=== PATIENT | male | born 1980 | race Caucasian/White ===

== ENCOUNTER 2019-07-25 19:34 | Observation (INO) ==
--- NOTE | 2019-07-25 19:50 | DR.N/VMALE ---
HPI - Time Seen Time seen: 19:46 - HPI Comment HPI Comment: pATIENT COMPLAINT OF ABDOMINAL PAIN, VOMITING ONSET TODAY AROUND 0500. PATIENT DENIES ANY BAD OR SPOILED FOOD. HE DOES NOT KNOW OF ANY EXPOSURE TO SOMEONE ILL WITH VOMITING. HE STATES HE HAS HAD THIS OFF AND ON THE PAST YE AR? - COVID-19 Coronavirus risk:travel/contact w/high risk person: No Has patient experienced Coronavirus symptoms: No - Source History Provided: Patient, EMS - Mode of Arrival Mode of Arrival: EMS - Context Onset: Spontaneous History of: None - Quality Quality: Bilious - Associated Signs and Symptoms Abdominal Pain Quality: Aching Abdominal Pain Location: Epigastric Symptoms: Abdominal Pain PMH - PMH Past Surgical History: No - Social History Alcohol Use: Occasionally - Travel Risk Coronavirus risk:travel/contact w/high risk person: No Has patient experienced Coronavirus symptoms: No - infectious screening In the last 2 months have you had wt loss of >10#?: NO Have you had fever, night sweats or hemotysis?: No Have you traveled outside the country in the last 6 months?: No ROS - Review of Systems Constitutional: No Symptoms Reported Eyes: No Symptoms Reported ENTM: No Symptoms Reported Respiratoy: No Symptoms Reported Cardiovascular: No Symptoms Reported Gastrointestinal/Abdominal: Abdominal Pain, Nausea, Vomiting Genitourinary: No Symptoms Reported Neurological: No Symptoms Reported Musculoskeletal: No Symptoms Reported Integumentary: No Symptoms Reported Hematologic/Lymphatic: No Symptoms Reported Endocrine: No Symptoms Reported Psychiatric: No Symptoms Reported All Other Systems: Reviewed and Negative PE - Vital Signs Vitals: Temperature 98.4 F Pulse Rate 59 Respiratory Rate 19 Blood Pressure 126/71 O2 Sat by Pulse Oximetry 99 Course - Consultation Called: 23:59 Call Returned: 23:59 Consultation Comments: CASE DISCUSSED WITH brii Penny, OBSERVATION, ivf AND ZOFRAN ROR - Labs Reviewed Result Diagrams: 07/25/19 20:11 07/25/19 20:11 - XRAY XRAY Interpreted by: Radiologist - Labs Reviewed Laboratory: WBC 18.3 X10^3/uL (3.6-10.0) H 07/25/19 20:11 RBC 5.60 X10^6/uL (4.7-6.0) 07/25/19 20:11 Hgb 16.9 g/dL (13.5-18.0) 07/25/19 20:11 Hct 49.5 % (42.0-54.0) 07/25/19 20:11 MCV 88.4 fL (80.0-100.0) 07/25/19 20:11 MCH 30.3 pg (27.0-34.0) 07/25/19 20:11 MCHC 34.2 g/dL (33.0-35.0) 07/25/19 20:11 RDW 14.6 % (11.6-16.5) 07/25/19 20:11 Plt Count 329 X10^3/uL (150.0-450.0) 07/25/19 20:11 MPV 6.8 fL (7.4-11.0) L 07/25/19 20:11 Neut % (Auto) 87.9 % (42.0-75.0) H 07/25/19 20:11 Lymph % (Auto) 8.2 % (21.0-51.0) L 07/25/19 20:11 [place] % (Auto) 3.6 % (0.0-13.0) 07/25/19 20:11 Eos % (Auto) 0.1 % (0.9-2.9) L 07/25/19 20:11 Baso % (Auto) 0.2 % (0.2-1.0) 07/25/19 20:11 Neut # (Auto) 16.1 x10^3/uL (2.2-4.8) H 07/25/19 20:11 Lymph # (Auto) 1.5 X10^3/uL (1.3-2.9) 07/25/19 20:11 [place] # (Auto) 0.7 x10^3/uL (0.3-0.8) 07/25/19 20:11 Eos # (Auto) 0.0 x10^3/uL (0.0-0.2) 07/25/19 20:11 Baso # (Auto) 0.0 X10^3/uL (0.0-0.1) 07/25/19 20:11 Absolute Nucleated RBC 0.0 /100WBC 07/25/19 20:11 Sodium 144 mmol/L (136-145) 07/25/19 20:11 Corrected Sodium 145 mmol/L (136-145) 07/25/19 20:11 Potassium 3.7 mmol/L (3.5-5.1) 07/25/19 20:11 Chloride 104 mmol/L (98-107) 07/25/19 20:11 Carbon Dioxide 30.3 mmol/L (21-32) 07/25/19 20:11 BUN 10 mg/dL (7-18) 07/25/19 20:11 Creatinine 1.02 mg/dL (0.70-1.30) 07/25/19 20:11 Est GFR (MDRD) Af Amer > 60 (>60) 07/25/19 20:11 Est GFR (MDRD) Non-Af > 60 (>60) 07/25/19 20:11 Glucose 159 mg/dL (65-99) H 07/25/19 20:11 Calcium 9.6 mg/dL (8.5-10.1) 07/25/19 20:11 Corrected Calcium TNP 07/25/19 20:11 Total Bilirubin 0.30 mg/dL (0.2-1.0) 07/25/19 20:11 AST 21 Units/L (15-37) 07/25/19 20:11 ALT 20 Units/L (12-78) 07/25/19 20:11 Alkaline Phosphatase 71 Units/L (46-116) 07/25/19 20:11 Total Protein 7.9 g/dL (6.4-8.2) 07/25/19 20:11 Albumin 4.3 g/dL (3.4-5.0) 07/25/19 20:11 Globulin 3.6 g/dL (2.5-4.5) 07/25/19 20:11 Albumin/Globulin Ratio 1.2 Ratio (1.1-2.1) 07/25/19 20:11 Lipase 93 Units/L (73-393) 07/25/19 20:11 Specimen Type Clean catch urine 07/25/19 20:50 Urine Color Yellow (YELLOW) 07/25/19 20:50 Urine Appearance Clear (CLEAR) 07/25/19 20:50 Urine pH 8.0 (5.0 - 8.0) 07/25/19 20:50 Ur Specific [place] 1.010 (1.000-1.030) 07/25/19 20:50 Urine Protein 2+ (NEGATIVE) 07/25/19 20:50 Urine Glucose (UA) Negative (NEGATIVE) 07/25/19 20:50 Urine Ketones 3+ (NEGATIVE) 07/25/19 20:50 Urine Occult Blood Negative (NEGATIVE) 07/25/19 20:50 Urine Nitrite Negative (NEGATIVE) 07/25/19 20:50 Urine Bilirubin Negative (NEGATIVE) 07/25/19 20:50 Urine Urobilinogen Normal (NORMAL) 07/25/19 20:50 Ur Leukocyte Esterase Negative (NEGATIVE) 07/25/19 20:50 Urine RBC None seen /HPF (0-3) 07/25/19 20:50 Urine WBC None seen /HPF (0-5) 07/25/19 20:50 Ur Squamous Epith Cells Rare /HPF (NEGATIVE) 07/25/19 20:50 Urine Bacteria Negative /HPF (NEGATIVE) 07/25/19 20:50 Ur Culture Indicated? No/not indicated 07/25/19 20:50 Urine Opiates Screen Negative (NEG=<300) 07/25/19 20:50 Urine Methadone Screen Negative (NEG=<300) 07/25/19 20:50 Ur Barbiturates Screen Negative (NEG=<200) 07/25/19 20:50 Ur Phencyclidine Scrn Negative (NEG=<25) 07/25/19 20:50 Ur Amphetamines Screen Negative (NEG=<1000) 07/25/19 20:50 U Benzodiazepines Scrn Positive (NEG=<200) 07/25/19 20:50 Urine Cocaine Screen Negative (NEG=<300) 07/25/19 20:50 U Marijuana (THC) Screen Positive (NEG=<50) A 07/25/19 20:50 - XRAY Xray Findings: CT abdo/Pelvis: IMPRESSION: 1. Circumferential mucosal thickening of the small bowel may represent small bowel enteritis 2. No evidence of obstructive uropathy 3. The appendix is not visualized. There are no secondary signs of acute appendicitis in the right lower quadrant region. Follow-up may be obtained as clinically indicated. (ABELINO GORDON) Opioid - Opioid Risk Tool Total: 0 Total Score Risk Category: Low Risk - Diagnosis Discharge Problem: Abdominal pain Qualifiers: Abdominal location: epigastric Qualified Code(s): R10.13 - Epigastric pain - Discharge Plan Condition: Stable - Follow ups/Referrals Follow ups/Referrals: NFD,None [Primary Care Provider] - 3 days - Instructions
[2019-07-25 19:51] VITALS: BMI 22.1
[2019-07-25] MEDS ORDERED: ZOFRAN INJ 4 MG VIAL IVP ONE (19:55)
[2019-07-25] MEDS ORDERED: NS 500 ML IV 1,000 ML IV ONE (19:55)
[2019-07-25] MEDS ORDERED: REGLAN INJ 10 MG VIAL IVP ONE (19:57)
[2019-07-25] MEDS ORDERED: ZOFRAN INJ 4 MG VIAL ONE (20:04)
[2019-07-25] MEDS ORDERED: REGLAN INJ 10 MG VIAL ONE (20:04)
[2019-07-25] MEDS ORDERED: NS 1000 ML 1,000 ML ONE (20:04)
[2019-07-25 20:23] LABS: BASOPHILS % (AUTO) 0.2 % (0.2-1.0); EOSINOPHILS % (AUTO) 0.1 % (0.9-2.9); HEMATOCRIT 49.5 % (42.0-54.0); HEMOGLOBIN 16.9 g/dL (13.5-18.0); LYMPHOCYTES # (AUTO) 1.5 X10^3/uL (1.3-2.9); LYMPHOCYTES % (AUTO) 8.2 % (21.0-51.0); MEAN CORPUSCULAR HEMOGLOBIN 30.3 pg (27.0-34.0); MEAN CORPUSCULAR HGB CONC 34.2 g/dL (33.0-35.0); MEAN CORPUSCULAR VOLUME 88.4 fL (80.0-100.0); MEAN PLATELET VOLUME 6.8 fL (7.4-11.0); MONOCYTES # (AUTO) 0.7 x10^3/uL (0.3-0.8); MONOCYTES % (AUTO) 3.6 % (0.0-13.0); NEUTROPHILS # (AUTO) 16.1 x10^3/uL (2.2-4.8); NEUTROPHILS % (AUTO) 87.9 % (42.0-75.0); PLATELET COUNT 329 X10^3/uL (150.0-450.0); RED CELL DISTRIBUTION WIDTH 14.6 % (11.6-16.5); WHITE BLOOD COUNT 18.3 X10^3/uL (3.6-10.0)
[2019-07-25 20:32] LABS: ALANINE AMINOTRANSFERASE 20 Units/L (12-78); ALBUMIN 4.3 g/dL (3.4-5.0); ALKALINE PHOSPHATASE 71 Units/L (46-116); ASPARTATE AMINO TRANSFERASE 21 Units/L (15-37); BLOOD UREA NITROGEN 10 mg/dL (7-18); CALCIUM 9.6 mg/dL (8.5-10.1); CARBON DIOXIDE 30.3 mmol/L (21-32); CHLORIDE 104 mmol/L (98-107); COR NA(FOR HYPERGLY) 145 mmol/L (136-145); CREATININE 1.02 mg/dL (0.70-1.30); LIPASE 93 Units/L (73-393); SODIUM 144 mmol/L (136-145); TOTAL PROTEIN 7.9 g/dL (6.4-8.2); eGFR NON BLACK RACES > 60 (>60)
[2019-07-25 21:02] LABS: BILIRUBIN,URINE NEGATIVE (NEGATIVE); BLOOD/HEMOGLOBIN,URINE NEGATIVE (NEGATIVE); GLUCOSE, URINE NEGATIVE (NEGATIVE); KETONES,URINE 3+ (NEGATIVE); LEUKOCYTE ESTERASE ,URINE NEGATIVE (NEGATIVE); NITRITES,URINE NEGATIVE (NEGATIVE); PROTEIN,URINE 2+ (NEGATIVE); UROBILINOGEN,URINE NORMAL (NORMAL)
[2019-07-25 21:09] LABS: APPEARANCE,URINE CLEAR (CLEAR); BACTERIA,URINE NEGATIVE /HPF (NEGATIVE); COLOR,URINE YELLOW (YELLOW); RBC,URINE NONE SEEN /HPF (0-3); SQUAMOUS EPITHELIAL CELL,UR RARE /HPF (NEGATIVE)
--- NOTE | 2019-07-25 21:47 | RAD ---
HISTORYEpigastric pain. PATIENT TO ED VIA EMS WITH C/O SEVERE ABDOMINAL PAIN AND N/V SINCE 6AM THIS DAY. PATIENT STATES LBM WAS LAST NIGHT AND WAS NORMAL.STUDYACUTE ABDOMEN SERIESCOMPARISONMarch 2017.FINDINGSThe trachea is midline. The cardiac silhouette is unremarkable. [The lungs are clear of consolidation, significant infiltrate, effusion or pneumothorax.] The bony thorax is unremarkable.Flat plate and upright evaluation of the abdomen demonstrates a normal bowel gas pattern. There is no pneumoperitoneum. No pathological soft tissue mass or calcification is identified. The bony structures are grossly intact.IMPRESSION1. [No acute cardiopulmonary disease.]2. [No evidence for acute abdominal pathology identified.]Electronically signed by: OCTAVIO ROWE (Jul 25, 2019 21:46:31)
--- NOTE | 2019-07-25 22:26 | CT ---
STUDY: CT ABDOMEN AND PELVIS WITH IV CONTRASTCOMPARISON: NoneTECHNIQUE: Axial images were acquired of the abdomen and pelvis with IV contrast. Sagittal and coronal reformatted images were provided. All images were reviewed in a variety of windows and levels.RADIATION REDUCTION TECHNIQUE: Automated exposure control, adjustment of the mA and/or kV according to patient size, or iterative reconstruction techniques were used.HISTORY: ABD PAIN, VOMITINGFINDINGS:LOWER THORAX: The visualized lower lung zones are clear. The heart size is within normal limits. There is no evidence of a pericardial effusion.LIVER: No intrahepatic focal lesions are seen. No evidence of intrahepatic or extrahepatic duct dilation.GALLBLADDER: The gallbladder is unremarkable.SPLEEN: The spleen enhances homogenously and is unremarkable.PANCREAS: The pancreas enhances homogenously and is unremarkable.AGRENAL GLANDS: The adrenal glands enhance homogenously and are unremarkable.: The kidneys enhance homogenously. Their collecting system is of normal caliber.URINARY BLADDER: The urinary bladder is unremarkable. There are no soft tissue masses seen in the urinary bladder.VESSELS: The abdominal aorta is normal in size without evidence of aneurysm or dissection. The celiac artery, superior mesenteric artery, agdaagux renal arteries, and inferior mesenteric artery are patent.GI: The stomach is unremarkable. Scattered areas of circumferential mucosal thickening is seen in the small bowel which may represent small bowel enteritis. There is no CT evidence of diverticulitis. there are no inflammatory changes seen in the right lower quadrant to suggest secondary signs of acute appendicitis. The appendix is not visualized on this exam.LYMPHNODES AND MESSENTERY: There is no evidence of retroperitoneal lymphadenopathy.BONES: The visualized bones are unremarkable. There are no concerning lytic or blastic lesions identified.IMPRESSION:1. Circumferential mucosal thickening of the small bowel may represent small bowel enteritis2. No evidence of obstructive uropathy3. The appendix is not visualized. There are no secondary signs of acute appendicitis in the right lower quadrant region. Follow-up may be obtained as clinically indicated.Electronically signed by: Tomas Aguilar (Jul 25, 2019 22:25:01)
[2019-07-25] MEDS ORDERED: PROTONIX INJ 40 MG VIAL IVP ONE (22:46)
[2019-07-25] MEDS ORDERED: PROTONIX INJ 40 MG VIAL ONE (22:48)
[2019-07-26] MEDS: NS 1000 ML 1,000 ML IV SCH ×4 (00:55→19:27)
[2019-07-26] MEDS ORDERED: ZOFRAN INJ 4 MG VIAL ONE (01:08)
[2019-07-26] MEDS: ZOFRAN INJ 4 MG VIAL IVP SCH ×3 (01:10→16:36)
[2019-07-26] MEDS ORDERED: NORCO 5/325 MG TAB ONE (03:10)
[2019-07-26] MEDS: NORCO 5/325 MG TAB PO PRN ×3 (03:10→16:15)
[2019-07-26] MEDS ORDERED: PHENERGAN INJ 25 MG IM ONE (06:01)
[2019-07-26] MEDS: PHENERGAN INJ 25 MG IM PRN ×2 (06:18→19:50)
[2019-07-26 06:39] LABS: BASOPHILS % (AUTO) 0.2 % (0.2-1.0); HEMATOCRIT 46.8 % (42.0-54.0); HEMOGLOBIN 16.1 g/dL (13.5-18.0); LYMPHOCYTES # (AUTO) 1.7 X10^3/uL (1.3-2.9); LYMPHOCYTES % (AUTO) 10.7 % (21.0-51.0); MEAN CORPUSCULAR HEMOGLOBIN 30.8 pg (27.0-34.0); MEAN CORPUSCULAR HGB CONC 34.4 g/dL (33.0-35.0); MEAN CORPUSCULAR VOLUME 89.6 fL (80.0-100.0); MEAN PLATELET VOLUME 7.6 fL (7.4-11.0); MONOCYTES % (AUTO) 6.5 % (0.0-13.0); NEUTROPHILS % (AUTO) 82.6 % (42.0-75.0); PLATELET COUNT 310 X10^3/uL (150.0-450.0); RED BLOOD COUNT 5.23 X10^6/uL (4.7-6.0); RED CELL DISTRIBUTION WIDTH 14.7 % (11.6-16.5); WHITE BLOOD COUNT 15.8 X10^3/uL (3.6-10.0)
--- NOTE | 2019-07-26 10:01 | DR.H&P ---
H&P History & Physical for Day of: H&P Date: 07/26/19 Chief Complaint Chief Complaint: Abdominal pain Nausea, Vomiting Allergies Allergies Allergy/AdvReac Type Severity Reaction Status Date / Time Penicillins Allergy Verified 07/25/19 19:55 History of Present Illness History of Present Illness: Pt is a 38 yo m w/ no pmhx admitted after having abdominal pain, nausea, vomiting for the past 9 days. He reports that this has been occurring intermittently for the past few years but has been occurring more often this year. He reports diffuse abdominal pain, no change in bowel movements. Nausea persistent and has been vomiting multiple times. Denies any blood. Initial labs/imaging:Wbc 18.3, Hgb 16.9, Plt 329, Na 144, K 3.7, Cr 1.02, Gluc 159. Lipase 93, UA:+ketones, UDS: +THC, Benzodiazepines, CTAP:circumferential mucosal thickening, small bowel enteritis. Pt was started on IVF, Zofran, Phenergan, Protonix, [place] prn, Abx:Cipro+Flagyl, CLD. Will get Ultrasound of abdomen, consult general surgery-Dr Gandhi for evaluation. Continue to monitor and follow up labs in the morning. Social History Does patient currently use any type of tobacco product: Yes Have you used tobacco products in the last 12 months: Yes Type of Tobacco Use: Cigarettes Alcohol Use: Occasionally Drug Use: None Medications Home Medications: Penicillins Allergy (Verified 07/25/19 19:55) CONTINUE taking the following medications NK 07/26/19 [History] Labs Result Diagrams: 07/26/19 05:54 07/25/19 20:11 Labs: Laboratory WBC 15.8 X10^3/uL (3.6-10.0) H 07/26/19 05:54 RBC 5.23 X10^6/uL (4.7-6.0) 07/26/19 05:54 Hgb 16.1 g/dL (13.5-18.0) 07/26/19 05:54 Hct 46.8 % (42.0-54.0) 07/26/19 05:54 MCV 89.6 fL (80.0-100.0) 07/26/19 05:54 MCH 30.8 pg (27.0-34.0) 07/26/19 05:54 MCHC 34.4 g/dL (33.0-35.0) 07/26/19 05:54 RDW 14.7 % (11.6-16.5) 07/26/19 05:54 Plt Count 310 X10^3/uL (150.0-450.0) 07/26/19 05:54 MPV 7.6 fL (7.4-11.0) 07/26/19 05:54 Neut % (Auto) 82.6 % (42.0-75.0) H 07/26/19 05:54 Lymph % (Auto) 10.7 % (21.0-51.0) L 07/26/19 05:54 [place] % (Auto) 6.5 % (0.0-13.0) 07/26/19 05:54 Eos % (Auto) 0.0 % (0.9-2.9) L 07/26/19 05:54 Baso % (Auto) 0.2 % (0.2-1.0) 07/26/19 05:54 Neut # (Auto) 13.0 x10^3/uL (2.2-4.8) H 07/26/19 05:54 Lymph # (Auto) 1.7 X10^3/uL (1.3-2.9) 07/26/19 05:54 [place] # (Auto) 1.0 x10^3/uL (0.3-0.8) H 07/26/19 05:54 Eos # (Auto) 0.0 x10^3/uL (0.0-0.2) 07/26/19 05:54 Baso # (Auto) 0.0 X10^3/uL (0.0-0.1) 07/26/19 05:54 Absolute Nucleated RBC 0.0 /100WBC 07/26/19 05:54 Sodium 144 mmol/L (136-145) 07/25/19 20:11 Corrected Sodium 145 mmol/L (136-145) 07/25/19 20:11 Potassium 3.7 mmol/L (3.5-5.1) 07/25/19 20:11 Chloride 104 mmol/L (98-107) 07/25/19 20:11 Carbon Dioxide 30.3 mmol/L (21-32) 07/25/19 20:11 BUN 10 mg/dL (7-18) 07/25/19 20:11 Creatinine 1.02 mg/dL (0.70-1.30) 07/25/19 20:11 Est GFR (MDRD) Af Amer > 60 (>60) 07/25/19 20:11 Est GFR (MDRD) Non-Af > 60 (>60) 07/25/19 20:11 Glucose 159 mg/dL (65-99) H 07/25/19 20:11 Calcium 9.6 mg/dL (8.5-10.1) 07/25/19 20:11 Corrected Calcium TNP 07/25/19 20:11 Total Bilirubin 0.30 mg/dL (0.2-1.0) 07/25/19 20:11 AST 21 Units/L (15-37) 07/25/19 20:11 ALT 20 Units/L (12-78) 07/25/19 20:11 Alkaline Phosphatase 71 Units/L (46-116) 07/25/19 20:11 Total Protein 7.9 g/dL (6.4-8.2) 07/25/19 20:11 Albumin 4.3 g/dL (3.4-5.0) 07/25/19 20:11 Globulin 3.6 g/dL (2.5-4.5) 07/25/19 20:11 Albumin/Globulin Ratio 1.2 Ratio (1.1-2.1) 07/25/19 20:11 Lipase 93 Units/L (73-393) 07/25/19 20:11 Specimen Type Clean catch urine 07/25/19 20:50 Urine Color Yellow (YELLOW) 07/25/19 20:50 Urine Appearance Clear (CLEAR) 07/25/19 20:50 Urine pH 8.0 (5.0 - 8.0) 07/25/19 20:50 Ur Specific [place] 1.010 (1.000-1.030) 07/25/19 20:50 Urine Protein 2+ (NEGATIVE) 07/25/19 20:50 Urine Glucose (UA) Negative (NEGATIVE) 07/25/19 20:50 Urine Ketones 3+ (NEGATIVE) 07/25/19 20:50 Urine Occult Blood Negative (NEGATIVE) 07/25/19 20:50 Urine Nitrite Negative (NEGATIVE) 07/25/19 20:50 Urine Bilirubin Negative (NEGATIVE) 07/25/19 20:50 Urine Urobilinogen Normal (NORMAL) 07/25/19 20:50 Ur Leukocyte Esterase Negative (NEGATIVE) 07/25/19 20:50 Urine RBC None seen /HPF (0-3) 07/25/19 20:50 Urine WBC None seen /HPF (0-5) 07/25/19 20:50 Ur Squamous Epith Cells Rare /HPF (NEGATIVE) 07/25/19 20:50 Urine Bacteria Negative /HPF (NEGATIVE) 07/25/19 20:50 Ur Culture Indicated? No/not indicated 07/25/19 20:50 Urine Opiates Screen Negative (NEG=<300) 07/25/19 20:50 Urine Methadone Screen Negative (NEG=<300) 07/25/19 20:50 Ur Barbiturates Screen Negative (NEG=<200) 07/25/19 20:50 Ur Phencyclidine Scrn Negative (NEG=<25) 07/25/19 20:50 Ur Amphetamines Screen Negative (NEG=<1000) 07/25/19 20:50 U Benzodiazepines Scrn Positive (NEG=<200) 07/25/19 20:50 Urine Cocaine Screen Negative (NEG=<300) 07/25/19 20:50 U Marijuana (THC) Screen Positive (NEG=<50) A 07/25/19 20:50 Review of Systems Constitutional: Weakness; denies Fever and Chills Eyes: No Symptoms Reported ENT: No Symptoms Reported Respiratory: No Symptoms Reported Cardiovascular: No Symptoms Reported Gastrointestinal: Nausea, Vomiting and Abdominal Pain; denies Diarrhea, Constipation, Melena and Hematochezia Genitourinary: No Symptoms Reported Musculoskeletal: No Symptoms Reported Skin: No Symptoms Reported Neurological: No Symptoms Reported Physical Exam Vital Signs: Temperature 98.6 F Pulse Rate [Right Brachial] 91 Pulse Rate 59 Respiratory Rate 18 Blood Pressure [Right Arm] 127/77 Blood Pressure 126/71 O2 Sat by Pulse Oximetry 99 Oriented: Normal Eyes: Normal Ear: Normal Nose: Normal Respiratory: Clear Throughout Cardiovascular: Normal Auscultation: Bowel Sounds: Normal Palpation: Normal Tenderness: Diffuse and Moderate Skin: Normal Musculoskeletal: Normal Speech Pattern: Clear Assessment/Plan (1) Enteritis: Status: Acute Plan: Continue antibiotics. Consult general surgery-Dr Oksana, f/u recs (2) Dehydration: Status: Acute Plan: IVF, CLD (3) Abdominal pain: Qualifiers: Abdominal location: epigastric Qualified Code(s): R10.13 - Epigastric pain Status: Acute (4) Acute gastritis: Status: Acute (5) Nausea & vomiting: Status: Acute Review H&P Reviewed: Yes Patient was examined?: Yes
[2019-07-26] MEDS: FLAGYL IV PREMIX 500 MG BAG 500 MG/100 ML BAG IV SCH ×3 (10:15→22:10)
[2019-07-26] MEDS: CIPRO IV 400 MG PREMIX* 400 MG/200 ML IV.SOLN. IV SCH ×2 (11:40→20:50)
[2019-07-26] MEDS ORDERED: PROTONIX INJ 40 MG VIAL ONE (11:51)
[2019-07-26] MEDS: DILAUDID INJ IVP PRN (19:48)
[2019-07-27] MEDS: NORCO 5/325 MG TAB PO PRN (00:05)
[2019-07-27] MEDS: ZOFRAN INJ 4 MG VIAL IVP SCH ×3 (00:53→17:35)
[2019-07-27] MEDS: DILAUDID INJ IVP PRN ×5 (01:54→22:46)
[2019-07-27] MEDS: NS 1000 ML 1,000 ML IV SCH ×4 (01:54→18:40)
[2019-07-27] MEDS: FLAGYL IV PREMIX 500 MG BAG 500 MG/100 ML BAG IV SCH ×3 (05:54→22:46)
[2019-07-27] MEDS: PROTONIX INJ 40 MG VIAL IVP SCH (08:40)
[2019-07-27] MEDS: CIPRO IV 400 MG PREMIX* 400 MG/200 ML IV.SOLN. IV SCH ×2 (08:42→20:53)
[2019-07-27 09:15] LABS: BASOPHILS # (AUTO) 0.1 X10^3/uL (0.0-0.1); BASOPHILS % (AUTO) 0.5 % (0.2-1.0); EOSINOPHILS % (AUTO) 0.3 % (0.9-2.9); HEMATOCRIT 43.2 % (42.0-54.0); HEMOGLOBIN 14.7 g/dL (13.5-18.0); LYMPHOCYTES # (AUTO) 2.1 X10^3/uL (1.3-2.9); LYMPHOCYTES % (AUTO) 18.2 % (21.0-51.0); MEAN CORPUSCULAR HEMOGLOBIN 30.4 pg (27.0-34.0); MEAN CORPUSCULAR VOLUME 89.3 fL (80.0-100.0); MEAN PLATELET VOLUME 6.8 fL (7.4-11.0); MONOCYTES # (AUTO) 0.9 x10^3/uL (0.3-0.8); MONOCYTES % (AUTO) 7.6 % (0.0-13.0); NEUTROPHILS # (AUTO) 8.4 x10^3/uL (2.2-4.8); NEUTROPHILS % (AUTO) 73.4 % (42.0-75.0); PLATELET COUNT 282 X10^3/uL (150.0-450.0); RED BLOOD COUNT 4.84 X10^6/uL (4.7-6.0); RED CELL DISTRIBUTION WIDTH 14.3 % (11.6-16.5); WHITE BLOOD COUNT 11.5 X10^3/uL (3.6-10.0)
[2019-07-27 09:31] LABS: ALANINE AMINOTRANSFERASE 20 Units/L (12-78); ALBUMIN 3.7 g/dL (3.4-5.0); ALKALINE PHOSPHATASE 50 Units/L (46-116); ASPARTATE AMINO TRANSFERASE 24 Units/L (15-37); BLOOD UREA NITROGEN 15 mg/dL (7-18); CALCIUM 8.7 mg/dL (8.5-10.1); CARBON DIOXIDE 31.6 mmol/L (21-32); CHLORIDE 105 mmol/L (98-107); COR NA(FOR HYPERGLY) 145 mmol/L (136-145); CREATININE 0.93 mg/dL (0.70-1.30); SODIUM 144 mmol/L (136-145); TOTAL PROTEIN 6.7 g/dL (6.4-8.2); eGFR NON BLACK RACES > 60 (>60)
--- NOTE | 2019-07-27 10:53 | PCM.PROG ---
Progress Note Progress Note for Day of Date of Exam: 07/27/19 Subjective Subjective: Pt is a 38 yo m w/ no pmhx admitted enteritis and bowel disease rule out. He reports pain is same as yesterday, having difficulty keeping liquids down, w/ feeling of nausea. Labs/imaging:Wbc 11.5, Hgb 14.7, Plt 282, Na 144, K 3.2, Cr 0.93, Gluc 125. Continue IVF, Zofran, Phenergan, Protonix, [place] prn, Abx:Cipro+Flagyl, CLD. Will repeat abdominal XR and get ultrasound of abdomen. General surgery-Dr Gandhi evaluated pt and will perform EGD in the morning. Continue to monitor and follow up labs in the morning. Past Medical Family Social History Allergies: Allergies Penicillins Allergy (Verified 07/25/19 19:55) Vital Signs and I&O's Vital Signs: Temperature 98.4 F Pulse Rate [Apical] 50 Pulse Rate [Right Brachial] 57 Pulse Rate 59 Respiratory Rate 18 Blood Pressure [Right Arm] 131/69 Blood Pressure 126/71 O2 Sat by Pulse Oximetry 100 Intake and Output: Intake & Output 07/24/19 07/25/19 07/26/19 07/27/19 23:59 23:59 23:59 23:59 Intake Total 4360 / 4360 480 / 480 Output Total 175 / 175 Balance 4185 / 4185 480 / 480 Physical Exam Oriented: Normal Eyes: Normal Ear: Normal Nose: Normal Cardiovascular: Normal Auscultation: Bowel Sounds: Normal Tenderness: Diffuse and Moderate Skin: Normal Musculoskeletal: Normal Speech Pattern: Clear and Appropriate Laboratory and Diagnostics Result Diagrams: 07/27/19 09:05 07/27/19 09:05 Labs: Laboratory WBC 11.5 X10^3/uL (3.6-10.0) H 07/27/19 09:05 RBC 4.84 X10^6/uL (4.7-6.0) 07/27/19 09:05 Hgb 14.7 g/dL (13.5-18.0) 07/27/19 09:05 Hct 43.2 % (42.0-54.0) 07/27/19 09:05 MCV 89.3 fL (80.0-100.0) 07/27/19 09:05 MCH 30.4 pg (27.0-34.0) 07/27/19 09:05 MCHC 34.0 g/dL (33.0-35.0) 07/27/19 09:05 RDW 14.3 % (11.6-16.5) 07/27/19 09:05 Plt Count 282 X10^3/uL (150.0-450.0) 07/27/19 09:05 MPV 6.8 fL (7.4-11.0) L 07/27/19 09:05 Neut % (Auto) 73.4 % (42.0-75.0) 07/27/19 09:05 Lymph % (Auto) 18.2 % (21.0-51.0) L 07/27/19 09:05 [place] % (Auto) 7.6 % (0.0-13.0) 07/27/19 09:05 Eos % (Auto) 0.3 % (0.9-2.9) L 07/27/19 09:05 Baso % (Auto) 0.5 % (0.2-1.0) 07/27/19 09:05 Neut # (Auto) 8.4 x10^3/uL (2.2-4.8) H 07/27/19 09:05 Lymph # (Auto) 2.1 X10^3/uL (1.3-2.9) 07/27/19 09:05 [place] # (Auto) 0.9 x10^3/uL (0.3-0.8) H 07/27/19 09:05 Eos # (Auto) 0.0 x10^3/uL (0.0-0.2) 07/27/19 09:05 Baso # (Auto) 0.1 X10^3/uL (0.0-0.1) 07/27/19 09:05 Absolute Nucleated RBC 0.0 /100WBC 07/27/19 09:05 Sodium 144 mmol/L (136-145) 07/27/19 09:05 Corrected Sodium 145 mmol/L (136-145) 07/27/19 09:05 Potassium 3.2 mmol/L (3.5-5.1) L 07/27/19 09:05 Chloride 105 mmol/L (98-107) 07/27/19 09:05 Carbon Dioxide 31.6 mmol/L (21-32) 07/27/19 09:05 BUN 15 mg/dL (7-18) 07/27/19 09:05 Creatinine 0.93 mg/dL (0.70-1.30) 07/27/19 09:05 Est GFR (MDRD) Af Amer > 60 (>60) 07/27/19 09:05 Est GFR (MDRD) Non-Af > 60 (>60) 07/27/19 09:05 Glucose 125 mg/dL (65-99) H 07/27/19 09:05 Calcium 8.7 mg/dL (8.5-10.1) 07/27/19 09:05 Corrected Calcium TNP 07/27/19 09:05 Total Bilirubin 0.40 mg/dL (0.2-1.0) 07/27/19 09:05 AST 24 Units/L (15-37) 07/27/19 09:05 ALT 20 Units/L (12-78) 07/27/19 09:05 Alkaline Phosphatase 50 Units/L (46-116) 07/27/19 09:05 Total Protein 6.7 g/dL (6.4-8.2) 07/27/19 09:05 Albumin 3.7 g/dL (3.4-5.0) 07/27/19 09:05 Globulin 3.0 g/dL (2.5-4.5) 07/27/19 09:05 Albumin/Globulin Ratio 1.2 Ratio (1.1-2.1) 07/27/19 09:05 Lipase 93 Units/L (73-393) 07/25/19 20:11 Specimen Type Clean catch urine 07/25/19 20:50 Urine Color Yellow (YELLOW) 07/25/19 20:50 Urine Appearance Clear (CLEAR) 07/25/19 20:50 Urine pH 8.0 (5.0 - 8.0) 07/25/19 20:50 Ur Specific [place] 1.010 (1.000-1.030) 07/25/19 20:50 Urine Protein 2+ (NEGATIVE) 07/25/19 20:50 Urine Glucose (UA) Negative (NEGATIVE) 07/25/19 20:50 Urine Ketones 3+ (NEGATIVE) 07/25/19 20:50 Urine Occult Blood Negative (NEGATIVE) 07/25/19 20:50 Urine Nitrite Negative (NEGATIVE) 07/25/19 20:50 Urine Bilirubin Negative (NEGATIVE) 07/25/19 20:50 Urine Urobilinogen Normal (NORMAL) 07/25/19 20:50 Ur Leukocyte Esterase Negative (NEGATIVE) 07/25/19 20:50 Urine RBC None seen /HPF (0-3) 07/25/19 20:50 Urine WBC None seen /HPF (0-5) 07/25/19 20:50 Ur Squamous Epith Cells Rare /HPF (NEGATIVE) 07/25/19 20:50 Urine Bacteria Negative /HPF (NEGATIVE) 07/25/19 20:50 Ur Culture Indicated? No/not indicated 07/25/19 20:50 Urine Opiates Screen Negative (NEG=<300) 07/25/19 20:50 Urine Methadone Screen Negative (NEG=<300) 07/25/19 20:50 Ur Barbiturates Screen Negative (NEG=<200) 07/25/19 20:50 Ur Phencyclidine Scrn Negative (NEG=<25) 07/25/19 20:50 Ur Amphetamines Screen Negative (NEG=<1000) 07/25/19 20:50 U Benzodiazepines Scrn Positive (NEG=<200) 07/25/19 20:50 Urine Cocaine Screen Negative (NEG=<300) 07/25/19 20:50 U Marijuana (THC) Screen Positive (NEG=<50) A 07/25/19 20:50 Plan (1) Enteritis: Status: Acute Plan: CTAP:circumferential mucosal thickening, small bowel enteritis. Continue antibiotics. Consult general surgery-Dr Gandhi, f/u recs (2) Dehydration: Status: Acute Plan: IVF, CLD (3) Abdominal pain: Status: Acute Qualifiers: Abdominal location: epigastric Qualified Code(s): R10.13 - Epigastric pain (4) Acute gastritis: Status: Acute (5) Nausea & vomiting: Status: Acute (6) Hypokalemia: Status: Acute Plan: Replete per protocol.
[2019-07-27] MEDS ORDERED: POTASSIUM CHLORIDE LIQ 20 MEQ UDC PO PRN (14:47)
[2019-07-27] MEDS ORDERED: KLOR-CON PO PRN (14:47)
[2019-07-27] MEDS ORDERED: MICRO K EXTEN CAP 10 MEQ PO PRN (14:47)
[2019-07-27] MEDS ORDERED: K-RIDER 10 MEQ/NS 100 ML 10 MEQ/100 ML BAG IV PRN (14:47)
[2019-07-27] MEDS ORDERED: POTASSIUM CHL 40 MEQ/NS 0.45% 500 ML IV PRN (14:47)
[2019-07-27] MEDS ORDERED: POTASSIUM CHL 60 MEQ/NS 0.45% 500 ML IV PRN (14:47)
[2019-07-27] MEDS ORDERED: K-DUR TAB 20 MEQ PO ONE (15:38)
[2019-07-27] MEDS: K-DUR TAB 20 MEQ PO PRN ×2 (15:43→18:56)
[2019-07-27] MEDS: MAGNESIUM SULFATE 1 GRAM/100 mL PREMIX 1 GM/100 ML BAG IV PRN ×2 (17:50→18:50)
[2019-07-28] MEDS: ZOFRAN INJ 4 MG VIAL IVP SCH (01:05)
[2019-07-28] MEDS: NS 1000 ML 1,000 ML IV SCH (01:09)
[2019-07-28] MEDS: DILAUDID INJ IVP PRN ×2 (03:45→08:35)
[2019-07-28 05:43] LABS: BASOPHILS # (AUTO) 0.1 X10^3/uL (0.0-0.1); BASOPHILS % (AUTO) 0.6 % (0.2-1.0); EOSINOPHILS # (AUTO) 0.2 x10^3/uL (0.0-0.2); EOSINOPHILS % (AUTO) 1.7 % (0.9-2.9); HEMATOCRIT 40.6 % (42.0-54.0); HEMOGLOBIN 13.9 g/dL (13.5-18.0); LYMPHOCYTES # (AUTO) 2.5 X10^3/uL (1.3-2.9); LYMPHOCYTES % (AUTO) 23.2 % (21.0-51.0); MEAN CORPUSCULAR HEMOGLOBIN 30.9 pg (27.0-34.0); MEAN CORPUSCULAR HGB CONC 34.2 g/dL (33.0-35.0); MEAN CORPUSCULAR VOLUME 90.3 fL (80.0-100.0); MEAN PLATELET VOLUME 7.8 fL (7.4-11.0); MONOCYTES # (AUTO) 0.9 x10^3/uL (0.3-0.8); MONOCYTES % (AUTO) 8.5 % (0.0-13.0); PLATELET COUNT 248 X10^3/uL (150.0-450.0); RED BLOOD COUNT 4.49 X10^6/uL (4.7-6.0); RED CELL DISTRIBUTION WIDTH 14.5 % (11.6-16.5); WHITE BLOOD COUNT 10.6 X10^3/uL (3.6-10.0)
[2019-07-28] MEDS: FLAGYL IV PREMIX 500 MG BAG 500 MG/100 ML BAG IV SCH (05:44)
[2019-07-28 06:02] LABS: ALANINE AMINOTRANSFERASE 17 Units/L (12-78); ALBUMIN 3.3 g/dL (3.4-5.0); ALKALINE PHOSPHATASE 44 Units/L (46-116); ASPARTATE AMINO TRANSFERASE 26 Units/L (15-37); BLOOD UREA NITROGEN 13 mg/dL (7-18); CALCIUM 8.1 mg/dL (8.5-10.1); CARBON DIOXIDE 24.7 mmol/L (21-32); CHLORIDE 105 mmol/L (98-107); COR CA(FOR HYPOALB) 8.7 mg/dL (8.5-10.1); SODIUM 139 mmol/L (136-145); TOTAL PROTEIN 6.1 g/dL (6.4-8.2); eGFR NON BLACK RACES > 60 (>60)
--- NOTE | 2019-07-28 06:17 | RAD ---
HISTORYAbdominal painSTUDYKUBCOMPARISONNoneFINDINGSThe abdominal gas pattern is nonspecific and nonobstructive. No abn ormal masses or abnormal calcifications are identified. The regional skeleton is intact.IMPRESSIONNo significant abnormality identifiedElectronically signed by: JUSTINA DIAZ (Jul 28, 2019 06:15:16)
--- NOTE | 2019-07-28 08:25 | US ---
HISTORYABD PAIN, N/VSTUDYGALL BLADDERCOMPARISONCT abdomen and pelvis April 20, 2019.TECHNIQUEMultiple santiago scale and color flow Doppler images of the right upper quadrant were obtained.FINDINGSThe liver is normal in echotexture and size. The right lobe of the liver measures 15.76 cm sagittal. No focal intraparenchymal mass or intrahepatic biliary ductal dilatation can be observed. The gallbladder fails to demonstrate evidence for cholelithiasis or layering sludge . The common bile duct is unremarkable measuring 4 mm. No pericholecystic fluid or gallbladder wall thickening can be observed. The pancreas is normal in size contour and echogenicity in the head body and tail portion. There is normal flow in the main portal vein. Normal flow is seen in the hepatic veins. The aorta tapers normally without aneurysm there is normal flow in the IVC.The right kidney appears normal in size without focal parenchymal mass or nephrolithiasis. The right kidney measurers 11.83 cm in length by 4.35 cm AP transverse diameter 6.6 cm cortical thickness 1.46 cm with normal vascular flow in the right kidney.. No hydronephrosis or perirenal fluid can be observed.IMPRESSIONUnremarkable examination of the right upper quadrant. The gallbladder biliary ducts are normal the liver pancreas and right kidney are normal.Electronically signed by: NETTA HORN (Jul 28, 2019 08:23:57)
[2019-07-28] MEDS: CIPRO IV 400 MG PREMIX* 400 MG/200 ML IV.SOLN. IV SCH (08:34)
[2019-07-28] MEDS ORDERED: NICOTINE PATCH TD SCH (09:00)
[2019-07-28] MEDS: PROTONIX INJ 40 MG VIAL IVP SCH (09:47)
[2019-07-28] MEDS ORDERED: DIPRIVAN VIAL 20 ML ONE ×2 (10:25→10:30)
--- NOTE | 2019-07-28 12:03 | W.DIS.FURT ---
Summary of Discharge Discharge Summary of Date Date of Exam: 07/28/19 Admission Date Date of Admission: 07/26/19 Admission Diagnosis Hospital Course: Pt is a 38 yo m w/ no pmhx admitted enteritis and acute gastritis. He had CTAP that showed 1. Circumferential mucosal thickening of the small bowel may represent small bowel enteritis. He was given IVF, pain control, Protonix, and Abx:Cipro+Flagyl. Repeat imaging KUB negative, and U/S gallbladder negative for acute findings. Labs/imaging:Wbc 10.6, Hgb 13.9, Plt 248, Na 139, K 3.5, Cr 0.7. General surgery-Dr Gandhi consulted and evaluated pt. EGD performed that showed mild-mod gastritis. Rx given for protonix and carafate. Pt discharged in stable condition and instructed to follow up with Gen Surgery and pcp in 10 days. Vital Signs: Vital Signs (72 hours) 07/25/19 19:43 07/25/19 20:00 07/25/19 21:00 Temperature 98.4 F Pulse Rate 58 L 62 60 Pulse Rate [Apical] Pulse Rate [Left Brachial] Pulse Rate [Right Brachial] Respiratory Rate 22 20 19 Blood Pressure 140/75 132/76 Blood Pressure [Left Arm] Blood Pressure [Right Arm] O2 Sat by Pulse Oximetry 100 100 99 07/25/19 22:00 07/25/19 23:00 07/26/19 00:26 Temperature Pulse Rate 62 59 L Pulse Rate [Apical] Pulse Rate [Left Brachial] Pulse Rate [Right Brachial] 62 Respiratory Rate 20 19 20 Blood Pressure 129/74 126/71 Blood Pressure [Left Arm] Blood Pressure [Right Arm] 127/78 O2 Sat by Pulse Oximetry 99 99 99 07/26/19 00:45 07/26/19 03:10 07/26/19 04:00 Temperature 98.0 F 99.2 F Pulse Rate Pulse Rate [Apical] Pulse Rate [Left Brachial] Pulse Rate [Right Brachial] 58 L 55 L Respiratory Rate 24 22 22 Blood Pressure Blood Pressure [Left Arm] Blood Pressure [Right Arm] 126/71 141/71 O2 Sat by Pulse Oximetry 100 100 07/26/19 04:09 07/26/19 08:00 07/26/19 10:15 Temperature 98.6 F Pulse Rate Pulse Rate [Apical] Pulse Rate [Left Brachial] Pulse Rate [Right Brachial] 91 H Respiratory Rate 22 18 22 Blood Pressure Blood Pressure [Left Arm] Blood Pressure [Right Arm] 127/77 O2 Sat by Pulse Oximetry 99 07/26/19 11:15 07/26/19 12:00 07/26/19 16:00 Temperature 98.1 F 98.7 F Pulse Rate Pulse Rate [Apical] Pulse Rate [Left Brachial] Pulse Rate [Right Brachial] 54 L 57 L Respiratory Rate 22 18 20 Blood Pressure Blood Pressure [Left Arm] Blood Pressure [Right Arm] 140/70 129/65 O2 Sat by Pulse Oximetry 99 100 07/26/19 16:15 07/26/19 17:15 07/26/19 19:48 Temperature Pulse Rate Pulse Rate [Apical] Pulse Rate [Left Brachial] Pulse Rate [Right Brachial] Respiratory Rate 20 20 20 Blood Pressure Blood Pressure [Left Arm] Blood Pressure [Right Arm] O2 Sat by Pulse Oximetry 07/26/19 20:00 07/26/19 20:18 07/27/19 00:00 Temperature 98.6 F 98.0 F Pulse Rate Pulse Rate [Apical] 50 L Pulse Rate [Left Brachial] Pulse Rate [Right Brachial] 57 L Respiratory Rate 20 20 16 Blood Pressure Blood Pressure [Left Arm] Blood Pressure [Right Arm] 128/73 134/73 O2 Sat by Pulse Oximetry 100 99 07/27/19 00:05 07/27/19 01:05 07/27/19 01:54 Temperature Pulse Rate Pulse Rate [Apical] Pulse Rate [Left Brachial] Pulse Rate [Right Brachial] Respiratory Rate 20 16 18 Blood Pressure Blood Pressure [Left Arm] Blood Pressure [Right Arm] O2 Sat by Pulse Oximetry 07/27/19 02:24 07/27/19 04:00 07/27/19 08:00 Temperature 98.4 F 98.2 F Pulse Rate Pulse Rate [Apical] 50 L 46 L Pulse Rate [Left Brachial] Pulse Rate [Right Brachial] Respiratory Rate 16 20 18 Blood Pressure Blood Pressure [Left Arm] Blood Pressure [Right Arm] 131/69 128/61 O2 Sat by Pulse Oximetry 100 100 07/27/19 08:35 07/27/19 09:05 07/27/19 12:00 Temperature 98.9 F Pulse Rate Pulse Rate [Apical] 47 L Pulse Rate [Left Brachial] Pulse Rate [Right Brachial] Respiratory Rate 18 18 18 Blood Pressure Blood Pressure [Left Arm] Blood Pressure [Right Arm] 126/73 O2 Sat by Pulse Oximetry 100 07/27/19 14:55 07/27/19 15:25 07/27/19 16:00 Temperature 98.6 F Pulse Rate Pulse Rate [Apical] 46 L Pulse Rate [Left Brachial] Pulse Rate [Right Brachial] Respiratory Rate 18 18 18 Blood Pressure Blood Pressure [Left Arm] Blood Pressure [Right Arm] 133/63 O2 Sat by Pulse Oximetry 99 07/27/19 18:40 07/27/19 19:10 07/27/19 20:00 Temperature 98.6 F Pulse Rate Pulse Rate [Apical] 52 L Pulse Rate [Left Brachial] Pulse Rate [Right Brachial] 47 L Respiratory Rate 18 20 20 Blood Pressure Blood Pressure [Left Arm] 141/85 Blood Pressure [Right Arm] O2 Sat by Pulse Oximetry 99 07/27/19 22:46 07/27/19 23:16 07/28/19 00:00 Temperature 98.2 F Pulse Rate Pulse Rate [Apical] 54 L Pulse Rate [Left Brachial] Pulse Rate [Right Brachial] Respiratory Rate 22 20 20 Blood Pressure Blood Pressure [Left Arm] 137/74 Blood Pressure [Right Arm] O2 Sat by Pulse Oximetry 98 07/28/19 03:45 07/28/19 04:00 07/28/19 04:15 Temperature 98.4 F Pulse Rate Pulse Rate [Apical] Pulse Rate [Left Brachial] Pulse Rate [Right Brachial] 56 L Respiratory Rate 20 16 20 Blood Pressure Blood Pressure [Left Arm] 140/81 Blood Pressure [Right Arm] O2 Sat by Pulse Oximetry 100 07/28/19 07:00 07/28/19 08:00 07/28/19 08:35 Temperature 98.5 F Pulse Rate Pulse Rate [Apical] Pulse Rate [Left Brachial] 58 L Pulse Rate [Right Brachial] Respiratory Rate 20 18 20 Blood Pressure Blood Pressure [Left Arm] 132/77 Blood Pressure [Right Arm] O2 Sat by Pulse Oximetry 100 07/28/19 09:05 Temperature Pulse Rate Pulse Rate [Apical] Pulse Rate [Left Brachial] Pulse Rate [Right Brachial] Respiratory Rate 20 Blood Pressure Blood Pressure [Left Arm] Blood Pressure [Right Arm] O2 Sat by Pulse Oximetry Labs: Laboratory Last Values WBC 10.6 X10^3/uL (3.6-10.0) H 07/28/19 04:46 RBC 4.49 X10^6/uL (4.7-6.0) L 07/28/19 04:46 Hgb 13.9 g/dL (13.5-18.0) 07/28/19 04:46 Hct 40.6 % (42.0-54.0) L 07/28/19 04:46 MCV 90.3 fL (80.0-100.0) 07/28/19 04:46 MCH 30.9 pg (27.0-34.0) 07/28/19 04:46 MCHC 34.2 g/dL (33.0-35.0) 07/28/19 04:46 RDW 14.5 % (11.6-16.5) 07/28/19 04:46 Plt Count 248 X10^3/uL (150.0-450.0) 07/28/19 04:46 MPV 7.8 fL (7.4-11.0) 07/28/19 04:46 Neut % (Auto) 66.0 % (42.0-75.0) 07/28/19 04:46 Lymph % (Auto) 23.2 % (21.0-51.0) 07/28/19 04:46 [place] % (Auto) 8.5 % (0.0-13.0) 07/28/19 04:46 Eos % (Auto) 1.7 % (0.9-2.9) 07/28/19 04:46 Baso % (Auto) 0.6 % (0.2-1.0) 07/28/19 04:46 Neut # (Auto) 7.0 x10^3/uL (2.2-4.8) H 07/28/19 04:46 Lymph # (Auto) 2.5 X10^3/uL (1.3-2.9) 07/28/19 04:46 [place] # (Auto) 0.9 x10^3/uL (0.3-0.8) H 07/28/19 04:46 Eos # (Auto) 0.2 x10^3/uL (0.0-0.2) 07/28/19 04:46 Baso # (Auto) 0.1 X10^3/uL (0.0-0.1) 07/28/19 04:46 Absolute Nucleated RBC 0.0 /100WBC 07/28/19 04:46 Sodium 139 mmol/L (136-145) 07/28/19 04:46 Corrected Sodium TNP 07/28/19 04:46 Potassium 3.5 mmol/L (3.5-5.1) 07/28/19 04:46 Chloride 105 mmol/L (98-107) 07/28/19 04:46 Carbon Dioxide 24.7 mmol/L (21-32) 07/28/19 04:46 BUN 13 mg/dL (7-18) 07/28/19 04:46 Creatinine 0.70 mg/dL (0.70-1.30) 07/28/19 04:46 Est GFR (MDRD) Af Amer > 60 (>60) 07/28/19 04:46 Est GFR (MDRD) Non-Af > 60 (>60) 07/28/19 04:46 Glucose 96 mg/dL (65-99) 07/28/19 04:46 Hemoglobin A1c 5.2 % 07/27/19 09:05 Calcium 8.1 mg/dL (8.5-10.1) L 07/28/19 04:46 Corrected Calcium 8.7 mg/dL (8.5-10.1) 07/28/19 04:46 Magnesium 2.0 mg/dL (1.7-2.9) 07/28/19 04:46 Total Bilirubin 0.50 mg/dL (0.2-1.0) 07/28/19 04:46 AST 26 Units/L (15-37) 07/28/19 04:46 ALT 17 Units/L (12-78) 07/28/19 04:46 Alkaline Phosphatase 44 Units/L (46-116) L 07/28/19 04:46 Total Protein 6.1 g/dL (6.4-8.2) L 07/28/19 04:46 Albumin 3.3 g/dL (3.4-5.0) L 07/28/19 04:46 Globulin 2.8 g/dL (2.5-4.5) 07/28/19 04:46 Albumin/Globulin Ratio 1.2 Ratio (1.1-2.1) 07/28/19 04:46 Lipase 93 Units/L (73-393) 07/25/19 20:11 Specimen Type Clean catch urine 07/25/19 20:50 Urine Color Yellow (YELLOW) 07/25/19 20:50 Urine Appearance Clear (CLEAR) 07/25/19 20:50 Urine pH 8.0 (5.0 - 8.0) 07/25/19 20:50 Ur Specific [place] 1.010 (1.000-1.030) 07/25/19 20:50 Urine Protein 2+ (NEGATIVE) 07/25/19 20:50 Urine Glucose (UA) Negative (NEGATIVE) 07/25/19 20:50 Urine Ketones 3+ (NEGATIVE) 07/25/19 20:50 Urine Occult Blood Negative (NEGATIVE) 07/25/19 20:50 Urine Nitrite Negative (NEGATIVE) 07/25/19 20:50 Urine Bilirubin Negative (NEGATIVE) 07/25/19 20:50 Urine Urobilinogen Normal (NORMAL) 07/25/19 20:50 Ur Leukocyte Esterase Negative (NEGATIVE) 07/25/19 20:50 Urine RBC None seen /HPF (0-3) 07/25/19 20:50 Urine WBC None seen /HPF (0-5) 07/25/19 20:50 Ur Squamous Epith Cells Rare /HPF (NEGATIVE) 07/25/19 20:50 Urine Bacteria Negative /HPF (NEGATIVE) 07/25/19 20:50 Ur Culture Indicated? No/not indicated 07/25/19 20:50 Urine Opiates Screen Negative (NEG=<300) 07/25/19 20:50 Urine Methadone Screen Negative (NEG=<300) 07/25/19 20:50 Ur Barbiturates Screen Negative (NEG=<200) 07/25/19 20:50 Ur Phencyclidine Scrn Negative (NEG=<25) 07/25/19 20:50 Ur Amphetamines Screen Negative (NEG=<1000) 07/25/19 20:50 U Benzodiazepines Scrn Positive (NEG=<200) 07/25/19 20:50 Urine Cocaine Screen Negative (NEG=<300) 07/25/19 20:50 U Marijuana (THC) Screen Positive (NEG=<50) A 07/25/19 20:50 Tissue Pathology To follow 07/28/19 10:32 Reason For Visit: ABDOMINAL PAIN AND VOMITING, BENZO ABUSE Discharge Date Discharge Date: 07/28/19 Discharge Diagnosis All Active Problems (Updated 07/27/19 @ 10:59 by Arslan Arita) Hypokalemia (Acute) Nausea & vomiting (Acute) Dehydration (Acute) Acute gastritis (Acute) Enteritis (Acute) Abdominal pain (Acute) Plan of Treatment: Continue with present treatment and follow up plan. Pt is to keep follow up appointment as instructed and take medications as ordered. Discharge Medications Discharge Medications: Penicillins Allergy (Verified 07/25/19 19:55) New Prescriptions pantoprazole [Protonix] 40 mg PO BID #60 tab 07/28/19 [Rx] sucralfate [Carafate] 1 g PO TID #30 tab 07/28/19 [Rx] Discharge Disposition Discharge Disposition: Home Discharge Condition: Stable
[2019-07-28 12:10] VITALS: BP 110/60
[2019-07-28] MEDS ORDERED: PROTONIX INJ 40 MG VIAL IVP SCH (21:00)
== END 2019-07-28 12:30 | disposition home or self-care (01) ==
LOC: ER 19:35 → MED/SURG 19:35
PROVIDERS: ADMIT Family Medicine; ATTEND Family Medicine
DX: F13.10 Sedative, hypnotic or anxiolytic abuse, uncomplicated; K52.89 Other specified noninfective gastroenteritis and colitis; K29.00 Acute gastritis without bleeding; E86.0 Dehydration; R11.2 Nausea with vomiting, unspecified; R10.13 Epigastric pain; F12.90 Cannabis use, unspecified, uncomplicated; E87.6 Hypokalemia